=== PATIENT | female | born 2000 | race Caucasian/White ===

== ENCOUNTER 2019-12-14 07:33 | Emergency (ER) | payer SELFPAY ==
[~2019-12-14] VITALS: Ht 162.6 cm; Wt 59.1 kg
[2019-12-14 07:37] VITALS: Ht 162.6 cm; Wt 59.1 kg
[2019-12-14 08:19] LABS: BASOPHILS 0.8 % (0-2); EOSINOPHILS 6.4 % (0-7); HEMATOCRIT 43.1 % (36.0-48.0); HEMOGLOBIN 14.6 g/dL (12-16); IMMATURE GRANULOCYTES 0.3 % (0-5); LYMPHOCYTES 43.8 % (15-50); MCH 30.8 pg (26.0-34.0); MCHC 33.9 g/dL (31.0-37.0); MCV 90.9 fL (80.0-100.0); MEAN PLATELET VOLUME 9.1 fL (7.4-10.4); MONOCYTES 6.3 % (2-11); NEUTROPHILS 42.4 % (40-80); PLATELET COUNT 230 10x3/uL (130-400); RBC 4.74 10x6/uL (4.00-5.40); RDW 11.9 % (11.5-14.5); WBC 7.9 10x3/uL (4.8-10.8)
[2019-12-14 08:25] LABS: CALC OSMOLALITY 276 mosm/kg (275-300); CALCIUM 8.6 mg/dL (8.5-10.1); CARBON DIOXIDE 30.8 mmol/L (21.0-32.0); CHLORIDE - SERUM 105 mmol/L (98-107); CREATININE - SERUM 0.7 mg/dL (0.6-1.3); GLUCOSE 88 mg/dL (74-106); POTASSIUM - SERUM 3.9 mmol/L (3.5-5.1); SODIUM 140 mmol/L (136-145); UREA NITROGEN 11 mg/dL (7-18); eGFR NON AFRICAN AMERICAN > 90 mL/min (90-120)
[2019-12-14 08:31] LABS: ALBUMIN 3.7 g/dL (3.4-5.0); ALKALINE PHOSPHATASE 55 U/L (30-120); ALT (SGPT) 27 U/L (10-68); AMYLASE - SERUM 95 U/L (25-115); BILIRUBIN NEGATIVE (NEGATIVE); BILIRUBIN - TOTAL 0.31 mg/dL (0.2-1.3); GLUCOSE NEGATIVE (NEGATIVE); KETONE NEGATIVE (NEGATIVE); LIPASE 179 U/L (73-393); NITRITE NEGATIVE (NEGATIVE); PROTEIN - SERUM 6.7 g/dL (6.4-8.2); UROBILINOGEN NORMAL (NORMAL)
[2019-12-14 08:33] LABS: BACTERIA FEW /hpf (NEGATIVE); EPITHELIAL CELLS OCC /hpf (0-5); RED CELLS - URINE >50 /hpf (0-5); WHITE CELLS - URINE 0-5 /hpf (NEGATIVE)
[2019-12-14 08:43] LABS: HCG URINE NEGATIVE (NEGATIVE)
[2019-12-14 09:15] VITALS: BP 117/63
== END 2019-12-14 09:17 | disposition home or self-care (01) ==
LOC: D.ER 07:33
PROVIDERS: Family Medicine
DX: N94.6 Dysmenorrhea, unspecified (principal)